=== PATIENT | female | born 1965 | race Two or more races ===

== ENCOUNTER 2017-06-07 09:25 | Emergency (ER) | payer OTHER ==
[~2017-06-07] VITALS: Ht 160 cm; Wt 112.5 kg
[~2017-06-07 09:25] MED LIST: ALBUTEROL0.63 MG/3; CATAFLAM50 MG PO; DEPAKENE250 MG PO; DIOVAN HCT 160-1 TAB PO; METFORMIN HCL500 MG PO
[2017-06-07] MEDS ORDERED: CEPHALEXIN500 M1 PO (12:34)
[2017-06-07] MEDS ORDERED: OSEL75CA PO (12:34)
[2017-06-07] MEDS ORDERED: TESSALON PERLE100 M1 PO (12:34)
[2017-06-07] MEDS ORDERED: KETO10TA2 PO (12:34)
== END 2017-06-07 13:25 | disposition home or self-care (01) ==
LOC: ER 09:25
DX: B34.9 Viral infection, unspecified (principal); J10.1 Influenza due to other identified influenza virus with other respiratory manifestations; N39.0 Urinary tract infection, site not specified

== ENCOUNTER 2017-08-09 16:51 | Emergency (ER) | payer OTHER ==
[~2017-08-09] VITALS: Ht 160 cm; Wt 113.4 kg
[~2017-08-09 16:51] MED LIST changes: +CEPHALEXIN500 M1 PO; +KETO10TA2 PO; +OSEL75CA PO; +TESSALON PERLE100 M1 PO
== END 2017-08-09 18:50 | disposition home or self-care (01) ==
LOC: ER 16:51
DX: N76.0 Acute vaginitis (principal); R10.32 Left lower quadrant pain

== ENCOUNTER 2018-03-30 10:37 | Emergency (ER) | payer OTHER ==
[~2018-03-30] VITALS: Ht 160 cm; Wt 113.4 kg
[~2018-03-30 10:37] MED LIST changes: +PERCOCET 5-3251 EACH PO
[2018-03-30] MEDS ORDERED: URIN D.S. TABL1 EACH PO (19:13)
[2018-03-30] MEDS ORDERED: KETO10TA2 PO (19:13)
== END 2018-03-30 21:12 | disposition home or self-care (01) ==
LOC: ER 10:37
DX: N20.0 Calculus of kidney (principal)

== ENCOUNTER 2019-07-29 08:03 | Emergency (ER) | payer OTHER ==
[~2019-07-29] VITALS: Ht 160 cm; Wt 112.5 kg
[~2019-07-29 08:03] MED LIST changes: +URIN D.S. TABL1 EACH PO
[2019-07-29] MEDS ORDERED: DIOVAN HCT 1601 EACH PO (08:14)
[2019-07-29] MEDS ORDERED: KETO10TA2 PO (16:01)
[2019-07-29] MEDS ORDERED: ORPHENADRINE C100 MG PO (16:01)
== END 2019-07-29 17:24 ==
LOC: ER 08:03
DX: M54.5 Low back pain (principal); K92.1 Melena